=== PATIENT | male | born 1965 | race Caucasian/White ===

== ENCOUNTER → 2024-07-17 | Outpatient (CLI) | payer OTHER ==
[~2024-07-17] MED LIST: CEPHALEXIN500 M1 PO; GABAPENTIN100 MG; LEVOFLOXACIN750 MG PO; NEUPRO1 MG/24 HR; OZEMPIC1 MG/0.71 SQ; ZOCOR10 M1 PO
== END ==
LOC: RAD 15:23
DX: M51.360 Other intervertebral disc degeneration, lumbar region with discogenic back pain only (principal); M47.816 Spondylosis without myelopathy or radiculopathy, lumbar region; M48.061 Spinal stenosis, lumbar region without neurogenic claudication; M47.817 Spondylosis without myelopathy or radiculopathy, lumbosacral region